=== PATIENT | male | born 1945 | race African-American/Black ===

== ENCOUNTER 2017-04-06 19:31 | Emergency (ER) | payer BC, MEDICARE ==
[~2017-04-06] VITALS: Ht 170.2 cm; Wt 73.0 kg
[2017-04-06 20:26] LABS: HEMATOCRIT 34.9 % (39.2-51.8); HEMOGLOBIN 11.7 g/dL (13.7-18.0); WHITE BLOOD COUNT 4.6 x10^3/uL (3.4-10)
[2017-04-06 20:30] LABS: BLOOD UREA NITROGEN 18 mg/dL (7-18)
[2017-04-06] MEDS ORDERED: SODIUM CHLORIDE FLUSH 10ML SYR IVF ONE (20:30)
[2017-04-06] MEDS ORDERED: SODIUM CHLORIDE 0.9% 1,000ML IVBOLUS ONE (20:30)
[2017-04-06 20:34] LABS: IS PT STATUS REG ER OR PRE ER? YES
[2017-04-06 21:37] VITALS: BP 110/72
== END 2017-04-06 21:40 | disposition home or self-care (01) ==
LOC: ED 21:26
DX: R55 Syncope and collapse (principal); F12.10 Cannabis abuse, uncomplicated; I10 Essential (primary) hypertension; E07.9 Disorder of thyroid, unspecified
CPT/HCPCS: 36415; 80048; 82040; 84484; 85025; 93005; 96360; 99285; J7030